=== PATIENT | female | born 1960 | race Caucasian/White ===

== ENCOUNTER 2019-06-16 09:21 | Day surgery (SDC) | payer BC ==
[2019-06-14 08:45] VITALS: BMI 38.9
[~2019-06-16 09:21] MED LIST: DEXAMETHASONE SOD PHOSPHATE 10 MG/ML 1 ML VIAL IV ONE; DEXAMETHASONE SOD PHOSPHATE 4 MG/ML 1 ML VIAL IV ONE; FAMOTIDINE 20 MG/2 ML VIAL IV ONE; LACTATED RINGERS 1,000 ML IV SCH; LIDOCAINE 1% 20 ML VIAL (10MG/ML) FOR IV START INTRADERMA PRN; MIDAZOLAM 2 MG/2 ML VIAL IV PRN; ONDANSETRON 4 MG/2 ML VIAL IVP ONE; SCOPOLAMINE 1.5MG/72HR PATCH TRANSDERM ONE
[2019-06-16] MEDS: OXYMETAZOLINE 0.05% NASL SPRAY 1 SPRAY BOTTLE NASAL ONE ×5 (09:55→10:29)
[2019-06-16 10:12] LABS: Glucose,Whole Blood 157 mg/dL (75-99)
[2019-06-16] MEDS ORDERED: SUCCINYLCHOLINE CHLORIDE 100 MG/5 ML SYR IV ONE (11:21)
[2019-06-16] MEDS ORDERED: MIDAZOLAM 2 MG/2 ML VIAL ONE (11:21)
[2019-06-16] MEDS ORDERED: GLYCOPYRROLATE 0.2 MG/ML 2 ML VIAL ONE (11:21)
[2019-06-16] MEDS ORDERED: fentaNYL (PF) 50 MCG/ML 2 ML AMP ONE (11:21)
[2019-06-16] MEDS ORDERED: LIDOCAINE 1% INJ 10MG/ML (20 ML MDV) ONE (11:21)
[2019-06-16] MEDS ORDERED: PROPOFOL 10 MG/ML 20 ML VIAL IV ONE (11:21)
[2019-06-16] MEDS ORDERED: ePHEDrine SULFATE/0.9% NACL/PF 50 MG/5 ML SYRINGE IV ONE (11:21)
[2019-06-16] MEDS ORDERED: LIDOCAINE 1%-EPI 1:100,000 20 ML VIAL SQ ONE ×2 (11:44)
[2019-06-16] MEDS ORDERED: BACITRACIN 500 UNIT/GM OINT 28.4 GM TUBE TOPICAL ONE (12:28)
--- NOTE | 2019-06-16 12:43 | P.OP ---
Date of Procedure: 06/16/19 Preoperative Diagnosis: Deviated nasal septum Inferior turbinate hypertrophy Chronic sinusitis right-sided Postoperative Diagnosis: Same with left maxillary sinus disease also Procedure(s) Performed: Septoplasty Outfractured and submucous resection of the inferior turbinates Bilateral functional endoscopic sinus surgery including bilateral maxillary antrostomy with removal of tissue from the maxillary sinus, right anterior and posterior ethmoidectomy and right sphenoidotomy including balloon sinus plasty Anesthesia: JARRETT Surgeon: Troy Grajeda Estimated Blood Loss (ml): 10 Pathology: other (Nasal septal bone and cartilage and sinus contents) Condition: stable Disposition: PACU Indications for Procedure: This is a 59-year-old o0 who has had difficulties with nasal airway obstruction and congestion as well as chronic sinusitis on the right side. Computed tomography scan of sinuses showed chronic sinusitis in the right maxillary ethmoid and sphenoid sinus Operative Findings: Nasal septum deviated to the right with inferior turbinate hypertrophy bilaterally. There was white mucous drainage in the right middle meatus and right maxillary sinus with inflammation throughout the ethmoid sinuses and the right sphenoid sinus, while performing the inferior turbinoplasty it was noted that there was purulence coming from the left middle meatus and therefore it was elected left maxillary antrostomy also with minimal purulence but obstruction of the ostium and mild inflammation of the mucosa throughout the maxillary sinus Description of Procedure: The patient was brought into the operative suite and placed in a supine position. The patient underwent induction of general anesthesia with oral endotracheal intubation without difficulty. The patient was prepped and draped in the usual aseptic fashion with the orbits in the operating field for monitoring to the case and the computed tomography scan was on the computer screen for review throughout the case. 1% lidocaine with 1 :100,000 epinephrine was infused submucosally into both sides of the nasal septum as well as the lateral nasal wall and anterior tips of the middle turbinates. While this was taking vasoconstrictive effect the inferior turbinates were infractured with [place] elevator and partial submucous resection of the inferior turbinates was performed with a portion of the submucosal soft tissue and the inferior turbinate bone removed with Coblation device. The inferior turbinates were then outfractured with the [place] elevator. A left hemitransfixion incision was then made with the mucoperichondrial and mucoperiosteal flap on the left elevated. The bony cartilaginous junction was disarticulated and the mucoperiosteal flap on the right was elevated. Bony nasal septal deformities were removed with Ryder forceps and an inferior car tilaginous strip was removed leaving a full 1.5 cm caudal strut. Checking intranasally this corrected the nasoseptal deformities and the hemitransfixion incision was closed with a running 4-0 chromic suture. Full 0 endoscopic examination is performed bilaterally. Beginning on the left, the middle turbinate was medialized. The maxillary ostium was located with a ballpoint probe and an infundibulotomy was performed followed by uncinectomy. The maxillary antrostomy was enlarged at the expense of the anterior and posterior fontanelle taking care anteriorly not to injure the lacrimal bone. The maxillary sinus was evaluated with 30 and 70 endoscope .[Abnormal appearing tissue was removed from the maxillary sinus]. Proceeding on the right the maxillary antrostomy and uncinectomy and in fundibulotomy and removal of tissue from maxillary sinus was completed as it was on the left. There was some purulence and therefore this was cultured also. Right Anterior and posterior ethmoidectomy were then performed from anterior to posterior to the level of the skull base. The roof of the anterior ethmoid air cells were then cleaned from posterior to anterior using up-biting Blakesley forceps. A balloon sinus plasty was then performed of the sphenoid sinus using the entellus light guided system. The sphenoid sinus was then explored with 0 endoscope.[Abnormal tissue was removed from the sphenoid sinus]. Attention was then turned to the right where the procedures were followed as they had been on the left. [Nasopore nasal dressing was placed in the middle meatus bilaterally under direct visualization]. Bilateral Garcia airway splints coated with bacitracin ointment were placed and sutured transseptally with a 4-0 nylon suture. The patient was suctioned in oral gastric fashion and was allowed to emerge from general anesthesia having tolerated procedure well and was extubated in the operating suite and transferred to the postoperative recovery area in satisfactory condition.
[2019-06-16 12:56] VITALS: TEMP 97.1
[2019-06-16] MEDS: HYDROmorphone 0.5 MG/0.5 ML SYRINGE IVP PRN ×2 (13:20→13:40)
[2019-06-16 13:25] LABS: Glucose,Whole Blood 176 mg/dL (75-99)
[2019-06-16] MEDS ORDERED: hydrALAZINE HCL 20 MG/ML 1 ML VIAL IV ONE (13:55)
[2019-06-16] MEDS ORDERED: HYDROcodone/APAP 5-325MG 1 EACH TAB PO ONE (14:43)
[2019-06-16 14:54] VITALS: RESP 18
[2019-06-16 15:40] VITALS: BP 132/77; PULSE 80
== END 2019-06-16 16:10 | disposition home or self-care (01) ==
LOC: OR 09:21
PROVIDERS: ATTEND Otolaryngology
DX: J34.2 Deviated nasal septum (principal); J34.3 Hypertrophy of nasal turbinates; J32.2 Chronic ethmoidal sinusitis; J32.3 Chronic sphenoidal sinusitis; J32.0 Chronic maxillary sinusitis; J01.01 Acute recurrent maxillary sinusitis; E11.9 Type 2 diabetes mellitus without complications; K08.409 Partial loss of teeth, unspecified cause, unspecified class; K21.9 Gastro-esophageal reflux disease without esophagitis; E78.5 Hyperlipidemia, unspecified; I48.91 Unspecified atrial fibrillation; G47.33 Obstructive sleep apnea (adult) (pediatric); Z99.89 Dependence on other enabling machines and devices; Z79.82 Long term (current) use of aspirin; Z79.899 Other long term (current) drug therapy; Z79.1 Long term (current) use of non-steroidal anti-inflammatories (NSAID); Z79.4 Long term (current) use of insulin; Z90.89 Acquired absence of other organs; Z98.890 Other specified postprocedural states; Z98.84 Bariatric surgery status; Z82.49 Family history of ischemic heart disease and other diseases of the circulatory system; Z83.79 Family history of other diseases of the digestive system; Z83.3 Family history of diabetes mellitus; Z91.048 Other nonmedicinal substance allergy status
CPT/HCPCS: 30520; 30140; 31267; 31259; 88305; 88300; 87070; 87205; 87075; 87077; 87186; C1726; J2250; J0360; J1100; J2405; J0690; J2001; J3010; J0330; J2704; J1170

== ENCOUNTER → 2020-03-28 | Outpatient (CLI) | payer BC | END | disposition home or self-care (01) | LOC: CPPFTMAIN 07:25 | PROVIDERS: ATTEND Family Medicine | DX: R05 Cough (principal) | CPT/HCPCS: 94060; 94726; 94729 ==

== ENCOUNTER → 2020-06-22 | Outpatient (CLI) | payer BC ==
--- NOTE | 2020-06-22 15:38 | US ---
EXAMINATION TYPE: US carotid duplex BILAT DATE OF EXAM: 06/22/2020 COMPARISON: NONE CLINICAL HISTORY: R42 Postural dizziness. Patient stated dizziness subsided after increasing daily wa ter intake. EXAM MEASUREMENTS: RIGHT: Peak Systolic Velocity (PSV) cm/sec ----- Right CCA: 92.1 ----- Right ICA: 122.0 prox ----- Right ECA: 65.3 ICA/CCA ratio: 122.0/92.1 = 1.3 RIGHT: End Diastole cm/sec ----- Right CCA: 22.6 ----- Right ICA: 30.3 ----- Right ECA: 0.0 LEFT: Peak Systolic Velocity (PSV) cm/sec ----- Left CCA: 99.8 ----- Left ICA: 83.7 ----- Left ECA: 55.8 ICA/CCA ratio: 83.7/99.8 = 0.8 LEFT: End Diastole cm/sec ----- Left CCA: 20.8 ----- Left ICA: 17.2 ----- Left ECA: 7.1 VERTEBRALS (direction of flow): Right Vertebral: Antegrade Left Vertebral: Antegrade Rhythm: Normal Mild intimal wall changes noted at bilateral carotid bifurcation. IMPRESSION: No hemodynamically significant stenosis bilaterally. Criteria for Assigning % of Stenosis / Diameter reduction (Estimation based on the indirect measurements of the internal carotid artery velocities (ICA PSV). 1. Normal (no stenosis)=ICA PSV < 125 cm/s: ratio < 2.0: ICA EDV<40 cm/s. 2. Less than 50% stenosis=ICA PSV < 125 cm/s: ratio < 2.0: ICA EDV<40 cm/s. 3. 50 to 69% stenosis=ICA PSV of 125 to 230 cm/s: ration 2.0 ? 4.0: ICA EDV 40-100 cm/s. 4. Greater than 70% stenosis to near occlusion= ICA PSV > 230 cm/s: ratio > 4.0: ICA EDV > 100 cm/s. 5. Near occlusion= ICA PSV velocities may be low or undetectable: variable ratio and ICA EDV. 6. Total occlusion=unable to detect flow.
== END | disposition home or self-care (01) ==
LOC: RADUSWWP 09:39
PROVIDERS: ATTEND Family Medicine
DX: R42 Dizziness and giddiness (principal)
CPT/HCPCS: 93880

== ENCOUNTER → 2021-11-23 | Outpatient (CLI) | payer BC ==
--- NOTE | 2021-11-26 10:47 | MM ---
Reason for exam: screening (asymptomatic). Last mammogram was performed 2 years and 8 months ago. History: Patient is postmenopausal. Physical Findings: A clinical breast exam by your physician is recommended on an annual basis and results should be correlated with mammographic findings. MG Screening Mammo w CAD Bilateral CC and MLO view(s) were taken. Prior study comparison: April 01, 2019, mammogram, performed at [facility]. February 03, 2018, mammogram, performed at [facility]. There are scattered fibroglandular densities. There are benign appearing round vascular calcifications bilaterally. There is no discrete abnormality. ASSESSMENT: Benign, BI-RAD 2 RECOMMENDATION: Routine screening mammogram of both breasts in 1 year.
== END | disposition home or self-care (01) ==
LOC: RADMAMWWP 08:20
PROVIDERS: ATTEND Family Medicine
DX: Z12.31 Encounter for screening mammogram for malignant neoplasm of breast (principal); Z78.0 Asymptomatic menopausal state
CPT/HCPCS: 77067

== ENCOUNTER → 2022-12-17 | Outpatient (CLI) | payer BC ==
--- NOTE | 2022-12-18 07:32 | MM ---
Reason for Exam: Screening (asymptomatic). Last screening mammogram was performed 12 month(s) ago. Patient History: Menarche at age 11. First Full-Term at age 26. Postmenopausal. Risk Values: Rubina 5 year model risk: 1.8%. NCI Lifetime model risk: 7.2%. Prior Study Comparison: 02/03/2018 Screening Mammogram, [facility]. 04/01/2019 Screening Mammogram, [facility]. 11/23/2021 Bilateral Screening Mammogram, [facility]. Tissue Density: The breast tissue is almost entirely fat. Findings: Analyzed By CAD. There is no suspicious group of microcalcifications or new suspicious mass in either breast. Overall Assessment: Negative, BI-RAD 1 Management: Screening Mammogram of both breasts in 1 year. A clinical breast exam by your physician is recommended on an annual basis and results should be correlated with mammographic findings. [facility] will attempt to contact patient to return for supplemental views and ultrasound if indicated. Electronically signed and approved by: Kal Ledesma DO
== END | disposition home or self-care (01) ==
LOC: RADMAMWWP 06:55
PROVIDERS: ATTEND Family Medicine
DX: Z12.31 Encounter for screening mammogram for malignant neoplasm of breast (principal); Z78.0 Asymptomatic menopausal state
CPT/HCPCS: 77067

== ENCOUNTER → 2023-01-30 | Outpatient (CLI) | payer BC ==
[2023-01-30 13:03] LABS: Partial Thromboplastin Time 22.3 sec (22.0-30.0); Prothrombin Time 10.4 sec (9.0-12.0)
[2023-01-30 15:56] LABS: ALT 23 U/L (8-44); AST 27 U/L (13-35); Albumin 4.4 d/dL (3.8-4.9); Albumin/Globulin Ratio 1.42 Ratio (1.60-3.17); Alkaline Phosphatase 90 U/L (41-126); BUN/Creat Ratio 22.33 Ratio (12.00-20.00); Blood Urea Nitrogen 20.1 mg/dL (9.0-27.0); Calcium 9.7 mg/dL (8.7-10.3); Carbon Dioxide 24.9 mmol/L (21.6-31.8); Chloride 105 mmol/L (96-109); Globulin 3.1 d/dL (1.6-3.3); Glucose 98 mg/dL (70-110); Potassium 4.5 mmol/L (3.5-5.5); Sodium 141 mmol/L (135-145); Total Bilirubin 0.7 mg/dL (0.3-1.2); Total Protein 7.5 d/dL (6.2-8.2)
[2023-01-30 17:11] LABS: Appearance,Urine Clear (Clear); Bilirubin,Urine Negative (Negative); Blood,Urine Negative (Negative); Color,Urine Yellow (Yellow); Ketones,Urine Negative (Negative); Nitrite,Urine Negative (Negative); Urobilinogen,Urine 0.2
[2023-01-30 20:12] LABS: Basophils # (A) 0.09 X 10*3/uL (0.00-0.10); Basophils % (A) 1.2 %; Eosinophils # (A) 0.25 X 10*3/uL (0.04-0.35); Eosinophils % (A) 3.2 %; HCT 41.6 % (37.2-46.3); HGB 13.2 d/dL (12.0-15.0); Lymphocytes # (A) 2.11 X 10*3/uL (0.90-5.00); MCH 30.3 pg (27.0-32.0); MCHC 31.7 d/dL (32.0-37.0); MCV 95.4 FL (80.0-97.0); Mean Platelet Volume 10.8 FL (9.5-12.2); Monocytes # (A) 0.77 X 10*3/uL (0.20-1.00); Monocytes % (A) 9.8 %; NRBC Per 100 WBC 0 X 10*3/uL (0.00-0.01); Neutrophils # (A) 4.56 X 10*3/uL (1.80-7.70); Neutrophils % (A) 58.3 %; Platelet Count 246 X 10*3/uL (140-440); RBC 4.36 X 10*6/uL (4.10-5.20); RDW 13.7 % (11.5-14.5); WBC 7.82 X 10*3/uL (4.50-10.00)
== END | disposition home or self-care (01) ==
LOC: LABWHC1 11:10
PROVIDERS: ATTEND Orthopaedic Surgery Sports Medicine
DX: Z01.812 Encounter for preprocedural laboratory examination (principal); M17.11 Unilateral primary osteoarthritis, right knee
CPT/HCPCS: 36415; 80053; 81003; 85025; 85610; 85730; 87070

== ENCOUNTER 2023-02-06 07:39 | Day surgery (SDC) | payer BC ==
[2023-02-03 11:48] VITALS: BMI 38.6
[~2023-02-06 07:39] MED LIST changes: +ACETAMINOPHEN TAB 500 MG TAB PO PRN; -DEXAMETHASONE SOD PHOSPHATE 10 MG/ML 1 ML VIAL IV ONE; -FAMOTIDINE 20 MG/2 ML VIAL IV ONE; +GABAPENTIN 300 MG CAP PO PRN; +HYDROmorphone 0.5 MG/0.5 ML SYRINGE IVP PRN; -LACTATED RINGERS 1,000 ML IV SCH; -LIDOCAINE 1% 20 ML VIAL (10MG/ML) FOR IV START INTRADERMA PRN; +MELOXICAM 7.5 MG TAB PO PRN; -MIDAZOLAM 2 MG/2 ML VIAL IV PRN; +ONDANSETRON 4 MG/2 ML VIAL IVP PRN; -SCOPOLAMINE 1.5MG/72HR PATCH TRANSDERM ONE; +TRANEXAMIC 1,000 MG/100ML-NACL 1,000 MG in SALINE 1 100ML.BAG IVPB PRN; +VANCOMYCIN 1,500 MG in SODIUM CHLORIDE 0.9% 500 ML 500 ML IVPB PRN
[2023-02-06] MEDS ORDERED: LACTATED RINGERS 1,000 ML IV ONE (08:00)
[2023-02-06 08:31] LABS: Glucose,Whole Blood 168 mg/dL (70-110)
[2023-02-06] MEDS ORDERED: MIDAZOLAM 2 MG/2 ML VIAL IVP ONE (08:59)
[2023-02-06] MEDS ORDERED: ACETAMINOPHEN TAB 325 MG TAB PO PRN (09:16)
[2023-02-06] MEDS ORDERED: traMADol 50 MG TAB PO PRN (09:16)
[2023-02-06] MEDS ORDERED: HYDROmorphone 0.5 MG/0.5 ML SYRINGE IVP PRN (09:16)
[2023-02-06] MEDS ORDERED: diazePAM 5 MG TAB PO PRN (09:16)
[2023-02-06] MEDS ORDERED: HYDROmorphone 1 MG/ML 1 ML SYRINGE IVP PRN (09:16)
[2023-02-06] MEDS ORDERED: bisacodyL 10 MG SUPP RECTAL PRN (09:16)
[2023-02-06] MEDS ORDERED: ONDANSETRON 4 MG/2 ML VIAL IVP PRN (09:16)
[2023-02-06] MEDS ORDERED: MAGNESIUM HYDROXIDE 2,400 MG/10 ML CUP PO PRN (09:16)
[2023-02-06] MEDS ORDERED: NALOXONE 0.4 MG/ML 1 ML VIAL IV PRN (09:16)
[2023-02-06] MEDS ORDERED: NA PHOS,M-B/NA PHOS,DI-BA 133 ML ENEMA RECTAL PRN (09:16)
[2023-02-06] MEDS ORDERED: HYDROcodone/APAP 7.5-325MG 1 EACH TAB PO PRN (09:23)
[2023-02-06 13:18] LABS: Glucose,Whole Blood 196 mg/dL (70-110)
[2023-02-06] MEDS ORDERED: SODIUM CHLORIDE 0.9% 1,000 ML IV ONE (13:50)
[2023-02-06] MEDS: HYDROmorphone 0.5 MG/0.5 ML SYRINGE IVP PRN ×2 (13:56→17:24)
--- NOTE | 2023-02-06 14:49 | XR ---
EXAMINATION TYPE: XR knee limited RT DATE OF EXAM: 02/06/2023 COMPARISON: NONE TECHNIQUE: Two views submitted HISTORY: Post op FINDINGS: There is a prosthetic knee in near anatomic alignment. There is soft tissue edema and emphysema. IMPRESSION: 1. Postoperative change. Appears in near-anatomic alignment
[2023-02-06] MEDS: LACTATED RINGERS 1,000 ML IV SCH ×3 (15:43→18:36)
[2023-02-06] MEDS: ROPIVACAINE 1,100 MG, SODIUM CHLORIDE 0.9% 500 ML 330 ML, EMPTY PAIN BALL 1 EACH MISCELLANE SCH ×4 (15:44→18:15)
[2023-02-06 17:22] LABS: Glucose,Whole Blood 344 mg/dL (70-110)
[2023-02-06] MEDS ORDERED: ALBUTEROL HFA INHALER INHALATION PRN (17:58)
[2023-02-06] MEDS ORDERED: DEXTROSE 50% SYRINGE 50 ML IVP PRN ×4 (18:00→20:08)
--- NOTE | 2023-02-06 18:06 | P.CONS ---
History of Present Illness - Reason for Consult Consult date: 02/06/23 - History of Present Illness Patient is a 62-year-old female with a past medical history of diabetes mellitus, atrial fibrillation not on anticoagulation, hypertension, asthma, lap band who presents for right TKA. Patient was seen after surgery and currently has no acute complaints. Medicine has been consulted for medical management Review of systems:10 ROS reviewed and are negative except as noted in HPI Physical exam General: [Alert and oriented, well nourished, no acute distress]. Eye: [PERRL, EOMI, normal conjunctiva]. HENT: [Normocephalic, clear tympanic membranes, normal hearing, moist oral mucosa, no scleral icterus, no sinus tenderness]. Neck: [Supple, non-tender, no carotid bruits, no JVD, no lymphadenopathy]. Lungs: [Clear to auscultation and percussion, non-labored respiration]. Heart: [Normal rate, regular rhythm, no murmur, gallop or edema]. Abdomen: [Soft, non-tender, non-distended, normal bowel sounds, no masses]. Musculoskeletal: [Right knee bandages intact and dry, restricted range of motion of the right knee]. Skin: [Skin is warm, dry and pink, no rashes or lesions]. Neurologic: [Awake, alert, and oriented X3, CN II-XII intact]. Psychiatric: [Cooperative, appropriate mood and affect]. Assessment and plan Diabetes mellitus uncontrolled Paroxysmal atrial fibrillation Hypertension Asthma Status post right TKA We'll start patient on Levemir 29 units at bedtime, 10 units aspart with meals and sliding scale insulin. On discharge patient will resume her home insulin regimen which also includes oral diabetic meds. Diabetic diet and Accu-Cheks Resume sotalol. Patient was not on any anticoagulation outpatient. 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 Resume aspirin 81 mg by mouth twice a day for now. Resume lisinopril Resume albuterol inhaler and Singulair for asthma Pain management as per your primary service Thank you for the consult. We'll continue to follow along with you Past Medical History Past Medical History: Atrial Fibrillation, Diabetes Mellitus, GERD/Reflux, Hyperlipidemia, Hypertension, Osteoarthritis (OA), Sleep Apnea/CPAP/BIPAP Additional Past Medical History / Comment(s): sleep apnea (has a cpap but does not use), environmental allergies., has lap band with fluid. History of Any Multi-Drug Resistant Organisms: MRSA Year Discovered:: 06/16/19 MDRO Source:: Right Sinus Past Surgical History: Bariatric Surgery, Section, Tonsillectomy Additional Past Surgical History / Comment(s): D&C. LAP BAND 2011 with fluid (pt states done at [facility]- has not followed up in 10 years. ,pranay cataracts, sinus surgery. Past Anesthesia/Blood Transfusion Reactions: No Reported Reaction Additional Past Anesthesia/Blood Transfusion Reaction / Comm: long time to wake up after lap band surgery., no hx blood transfusion Past Psychological History: Depression Smoking Status: Never smoker Past Alcohol Use History: None Reported Past Drug Use History: None Reported - Past Family History Mother Family Medical History: Cancer Medications and Allergies Home Medications Medication Instructions Recorded Confirmed Type Aspirin 325 mg PO HS 06/09/15 02/06/23 History Atorvastatin [Lipitor] 40 mg PO HS 06/09/15 02/06/23 History Furosemide 20 mg PO DAILY PRN 06/09/15 02/06/23 History Insulin Aspart [NovoLOG] 1 dose SQ TID-W/MEALS 06/09/15 02/06/23 History lisinopriL [Lisinopril] 2.5 mg PO HS 06/09/15 02/06/23 History metFORMIN HCL [Glucophage] 1,000 mg PO BID 06/09/15 02/06/23 History Sotalol [Betapace] 80 mg PO BID 06/14/19 02/06/23 History Albuterol Inhaler [Ventolin Hfa 1 - 2 puff INHALATION Q6H PRN 02/03/23 02/06/23 History Inhaler] Budesonide-Formot 160-4.5 Mcg 2 puff INHALATION BID 02/03/23 02/06/23 History [Symbicort 160-4.5 Mcg Inhaler] Empagliflozin [Jardiance] 10 mg PO DAILY 02/03/23 02/06/23 History Famotidine [Pepcid] 20 mg PO BID 02/03/23 02/06/23 History Ibuprofen [Motrin] 600 mg PO DIRECTED PRN 02/03/23 02/06/23 History Insulin Detemir [Levemir Flexpen] 30 units SQ QAM 02/03/23 02/06/23 History Montelukast [Singulair] 10 mg PO DAILY 02/03/23 02/06/23 History Sertraline [Zoloft] 100 mg PO DAILY 02/03/23 02/06/23 History Ubidecarenone [Co Q-10] 400 mg PO HS 02/03/23 02/06/23 History Allergies Allergy/AdvReac Type Severity Reaction Status Date / Time No Known Allergies Allergy Verified 02/06/23 08:05 Physical Exam Osteopathic Statement: *. No significant issues noted on an osteopathic structural exam other than those noted in the History and Physical/Consult. Vitals: Vital Signs Temp Pulse Pulse Pulse Resp BP BP 02/06/23 17:18 98.0 F 92 18 122/71 02/06/23 16:30 82 121/73 02/06/23 15:30 88 124/66 02/06/23 14:30 74 16 127/71 02/06/23 14:00 77 16 127/64 02/06/23 13:30 70 134/76 02/06/23 13:00 64 16 112/59 02/06/23 12:45 70 112/59 02/06/23 12:30 73 115/64 02/06/23 12:15 73 16 113/63 02/06/23 12:00 69 16 122/63 02/06/23 11:45 73 16 127/68 02/06/23 11:34 97.3 F L 80 12 132/67 02/06/23 09:15 79 17 123/62 02/06/23 08:00 98.9 F 89 16 117/69 Pulse Ox 02/06/23 17:18 97 02/06/23 16:30 02/06/23 15:30 02/06/23 14:30 98 02/06/23 14:00 98 02/06/23 13:30 99 02/06/23 13:00 96 02/06/23 12:45 97 02/06/23 12:30 97 02/06/23 12:15 97 02/06/23 12:00 97 02/06/23 11:45 99 02/06/23 11:34 100 02/06/23 09:15 100 02/06/23 08:00 98 Intake and Output 02/06/23 02/06/23 02/06/23 06:59 14:59 22:59 Intake Total 1000 Output Total 100 Balance 900 Intake: IV 1000 Output: Estimated Blood Loss 100 Other: Weight 97.1 kg 97.1 kg Results Labs: Abnormal Lab Results - Last 24 Hours (Table) 02/06/23 02/06/23 02/06/23 Range/Units 08:30 13:16 17:20 POC Glucose (mg/dL) 168 H 196 H 344 H (70-110) mg/dL
--- NOTE | 2023-02-06 18:22 | OP ---
OPERATIVE REPORT DATE OF SERVICE : 02/06/2023 PREOPERATIVE DIAGNOSIS: Right knee osteoarthrosis. POSTOPERATIVE DIAGNOSIS: Right knee osteoarthrosis. PROCEDURE PERFORMED: Right total knee arthroplasty. ANESTHESIA: Spinal sedation. ESTIMATED BLOOD LOSS: 100 mL. TOURNIQUET TIME: 55 minutes at 250 mmHg. COMPLICATIONS: None apparent. DRAINS: None. DISPOSITION: Postanesthesia care unit. INDICATIONS FOR PROCEDURE: Cyndie is a very pleasant 62-year-old female with longstanding history of right knee pain. Her symptoms and examination are consistent with advanced right knee osteoarthrosis. She has been through significant nonoperative management up to this point. Further treatment options were discussed, and she decided to go forward with the right total knee arthroplasty. The risks of procedure were discussed with her in detail. These risks included but were not limited to risk of infection, nerve damage, bleeding, pain, and a small risk of deep vein thrombosis which could lead to fatal pulmonary embolism. There is also a risk of loosening of the implant which could require revision operation. The patient understands these risks. All of her questions were answered to her satisfaction. An appropriate informed consent was obtained. DESCRIPTION OF PROCEDURE: The patient was identified in the preoperative holding area. Surgical site was marked by both the patient and myself. She was given 2 g of Ancef IV for prophylactic purposes. She was then transported to the operative suite. She was placed supine on the operating room table. A spinal anesthetic was then administered and dosed per the Anesthesia Department without apparent complication. Examination under anesthesia was then performed. The patient was 2 to 3 degrees shy of full extension. She had 100 degrees of flexion. The medial collateral ligament, lateral collateral ligament, and posterior cruciate ligaments were stable. Tourniquet was then placed high on the right upper thigh and well-padded in preparation for surgery. The patient's right lower extremity was then prepped and draped in usual sterile fashion. Standard surgical pause was undertaken to ensure that we were operating the correct site and that appropriate preoperative antibiotics had been given. All staff in the room were in agreement, and we proceeded. The outlines of the patella were marked with a surgical pen. A planned 12 cm vertical incision centered over the patella was marked with a surgical pen. The leg was then exsanguinated with an Esmarch dressing. The knee was then flexed, and the tourniquet was inflated to 250 mmHg. The total tourniquet time for the procedure was 55 minutes. Incision was then made with a 10-blade scalpel. Dissection was carried down sharply overlying the fascia. Great care was taken to minimize the skin flaps. The knee was then exposed using a standard medial parapatellar approach. A small cuff of quadriceps tendon was then left for suturing. She was in a small bit of valgus preoperatively. Medially, dissection was only done as to allow for placement of the retractor. The medial meniscus was then excised as well. The lateral meniscus was also released anteriorly. The leg was then externally rotated. The patella was everted. The knee was flexed. Retractors were then placed to protect the collateral ligaments. I then proceeded to remove the infrapatellar fat pad. This was excised sharply tangentially with fibers of the patellar tendon. I then proceeded to remove the peripheral osteophytes. This was done with a rongeur. I then proceeded with the distal femoral resection. She did have near full extension. A planned 9 mm resection was then done. The femoral canal was then entered in midline of the femur approximately 10 mm anterior to the origin of the posterior cruciate ligament. The bianca was then advanced down to the center of the femur and placed intramedullary. Based on the preoperative radiographs, the angle between the anatomic and mechanical axis of the femur was approximately 4 to 5 degrees. The valgus angle of the distal femoral cutting guide was then set at 4 degrees for the right knee. The distal femoral cutting guide was then advanced over the intramedullary bianca. This was seated firmly against the femur. I then as mentioned planned to take 9 mm off the distal femur. The cutting block was then secured onto the femur with pins. Jig was then removed. The distal femoral cut was made through the slot of the block. The pins were removed. The distal femoral cutting block was removed. The accuracy of the distal femoral cuts was checked with 2 flat bars. I then proceeded with femoral sizing. Posterior referencing sizing guide was held firmly against the resected distal surface of the femur. The posterior condyles were resting on the posterior plane of the guide. The sizing stylus was then placed on the anterior femur. The size was measured as a size 6. I then assessed for femoral rotation. Three degrees of external rotation was placed onto the jig. These holes were then marked. I then confirmed the rotation by 3 separate methods. This was done using epicondylar axis as well as Whitesides line and posterior referencing. It was deemed that the external rotation was proper. I then went forward and placed the femoral cutting block. This was placed over the previously- placed pin holes. The Allen wing was then placed onto the anterior slots to ensure that we would not notch the anterior femur with the anterior femoral cut. I then proceeded with the anterior femoral cut. This was flush with the anterior cortex of the femur. The posterior cuts were then made followed by the anterior chamfer cut, then the posterior chamfer cut. The cutting block was then removed. Throughout the resection, the collateral ligaments were protected with retractors. I then placed a trial size 6 femur. It was slightly wide, but the narrow fit very nicely, and it fit flush with the distal end of the femur. The drill holes were then made. I then proceeded with the tibial cut. I planned for cruciate-retaining knee. The guide was placed and set for varus and valgus and for slope. The height was set for approximately 2 mm resection from the medial tibial plateau, which was the lower side. I was happy with the alignment and the amount of resection. The cutting block was then pinned to the proximal tibia. The alignment bianca was removed. The proximal tibia was resected with a reciprocating saw. Again, this was done with retractors protecting the collateral ligaments as well as the posterior cruciate ligament. I then proceeded to evaluate the flexion and extension gaps. A 10 mm block was then placed. The flexion and extension gaps were equal. I then proceeded with resection of posterior osteophytes. She had very minimal posterior osteophytes. This was done using a curved osteotome. This resected the posterior osteophytes, and posterior capsular stripping was done off the posterior aspect of the femur at this time. The osteophytes were then removed. I then proceeded with resection of the patella. The thickness of the patella was measured using the caliper. The thickness was 22 mm. The thickness of the anticipated patellar dome was taken into account. Resection was then performed and confirmed to be equal in 4 quadrants using a caliper. Approximately 14 mm of bone remained after resection. A 29 x 8 standard patellar trial was then placed. The holes were drilled, and the trial was then placed. I then proceeded with sizing the tibial plate. A size C plate fit very nicely. I then placed the trial femur, the tibial tray, and the patellar button. A 10 mm trial tibial insert was also placed. The components fit very nicely. She had full extension and flexion. The extension and flexion gaps were equal and stable with varus and valgus stress. The patella tracked appropriately. The tibial tray rotation was then marked with a Bovie. This was externally rotated properly. I then proceeded with tibial preparation. I first drilled the femoral holes and removed the femoral component. The tibial tray was then set for proper external rotation as well as medial and lateral placement onto the tibia. It was then pinned into place. I then proceeded with punching the keel. I then decided to proceed with cementing of all our components. The knee was thoroughly irrigated with sterile saline solution via pulsed lavage. The lateral genicular artery was identified and cauterized. All blood was removed from the bone of the tibia, femur, and patella with pulsed lavage. I then proceeded with cementing. Two packs of antibiotic bone cement prepared on the back table by the surgical product sales consultant. I then proceeded with cementing the tibia first. The cement was impacted into the keel as well as deeply seated into the bone. A second coat of cement was then placed. The tibia was then impacted into place. The excess cement was removed with Success's and Joker's. I then proceeded with cementing of the femoral component. The femoral component was also cemented using standard technique. Excess cement was removed. A 10 mm trial insert was then placed into the knee. It was brought into full extension with a constant axial load placed until the cement had hardened. The patellar component was then cemented. This was held firmly with a compressive device until the cement had dried. When the cement had dried, the knee was taken out of extension. All excess cement was removed from around the prosthesis. I then trialed the knee with a 10 mm insert. Flexion and extension gaps were appropriate. The knee was stable. It came into full extension. I decided to go forward with a 10 mm Medial Congruent cross-linked cruciate- retaining tibial insert. Polyethylene was then placed onto the tibial tray and locked into place. The knee was then reduced. The knee was again further irrigated with sterile saline solution with antibiotic added. The tourniquet was then deflated. Total tourniquet time for the procedure was 55 minutes at 250 mmHg. Final components were Scooby Persona size 6 narrow cruciate-retaining femoral component, size C tibial tray, a 10 mm Medial Congruent cruciate-retaining polyethylene insert, and a 29 x 8 mm patella. I then proceeded with closure. Again, the knee was thoroughly irrigated. The quadriceps tendon and the medial retinaculum were reapproximated with #2 Ethibond suture. The extensor mechanism was then closed with a running #2 Quill suture. Subcutaneous tissues were then closed with 2-0 Vicryl interrupted suture. The skin was closed with a running 3-0 Quill suture. Dermabond was applied to the incision. Sterile compressive dressing was then applied. All sponge and needle counts were deemed correct prior to closure. The patient tolerated the procedure without apparent complication. She was transferred to the recovery room in stable condition. MMODL / IJN: [id number] /
[2023-02-06 19:54] LABS: Glucose,Whole Blood 495 mg/dL (70-110)
[2023-02-06] MEDS: SYMBICORT 160-4.5 MCG INHALER INHALATION SCH (20:00)
[2023-02-06] MEDS: FAMOTIDINE 20 MG TAB PO SCH (20:27)
[2023-02-06] MEDS: SOTALOL 80 MG TAB PO SCH (20:27)
[2023-02-06] MEDS: ASPIRIN 81 MG PO SCH (20:27)
[2023-02-06] MEDS: INSULIN ASPART (NovoLOG) 100 UNIT/ML VIAL SQ SCH (20:28)
--- NOTE | 2023-02-06 20:39 | P.ANPRN ---
Procedure Note - Anesthesia - Nerve Block Performed Right Adductor Canal Infusion Time Out Performed: Yes Date of Procedure: 02/06/23 Procedure Start Time: 08:58 Procedure Stop Time: 09:09 Location of Patient: PreOp Indication: Acute Post-Operative Pain, Requested by Surgeon Sedation Type: Sedate with meaningful contact maintained Preparation: Sterile Prep, Sterile Dressing Position: Supine Catheter: Indwelling Needle Types: Pajunk Needle Gauge: 21 Ultrasound used to visualize needle placement: Yes Ultrasound used to observe medication spread: Yes Blood Aspirated: No Pain Paresthesia on Injection Noted: No Resistance on Injection: Normal Image Stored and Saved: Yes Events: Uneventful and Well Tolerated (Ropivacaine 0.5% 20 mL plus dexamethasone 4 mg)
--- NOTE | 2023-02-06 20:40 | P.ANPRN ---
Procedure Note - Anesthesia - Nerve Block Performed Right iPack Single Time Out Performed: Yes Date of Procedure: 02/06/23 Procedure Start Time: :10 Procedure Stop Time: :13 Location of Patient: PreOp Indication: Acute Post-Operative Pain, Requested by Surgeon Sedation Type: Sedate with meaningful contact maintained Preparation: Sterile Prep Position: Supine Needle Types: Pajunk Needle Gauge: 21 Ultrasound used to visualize needle placement: Yes Ultrasound used to observe medication spread: Yes Blood Aspirated: No Pain Paresthesia on Injection Noted: No Resistance on Injection: Normal Image Stored and Saved: Yes Events: Uneventful and Well Tolerated (Ropivacaine 0.5% 20 mL plus dexamethasone 4 mg)
[2023-02-06] MEDS ORDERED: ATORVASTATIN 40 MG TAB PO SCH (21:00)
[2023-02-06] MEDS ORDERED: SENNOSIDES-DOCUSATE SODIUM 1 EACH TAB PO SCH (21:00)
[2023-02-06] MEDS ORDERED: INSULIN DETEMIR (LEVEMIR) 100 UNIT/ML SYR SQ SCH (21:00)
[2023-02-07] MEDS: HYDROcodone/APAP 7.5-325MG 1 EACH TAB PO PRN ×3 (01:57→13:51)
[2023-02-07 05:19] LABS: Basophils % (A) 0 %; Eosinophils % (A) 0 %; HCT 33.5 % (34.0-46.0); HGB 11.2 gm/dL (11.4-16.0); Lymphocytes # (A) 0.8 k/uL (1.0-4.8); Lymphocytes % (A) 10 %; MCH 30.8 pg (25.0-35.0); MCHC 33.3 g/dL (31.0-37.0); MCV 92.5 fL (80.0-100.0); Mean Platelet Volume 8.1; Monocytes # (A) 0.5 k/uL (0-1.0); Monocytes % (A) 6 %; Neutrophils # (A) 6.9 k/uL (1.3-7.7); Neutrophils % (A) 83 %; Platelet Count 166 k/uL (150-450); RBC 3.62 m/uL (3.80-5.40); RDW 13.5 % (11.5-15.5); WBC 8.4 k/uL (3.8-10.6)
[2023-02-07 06:03] LABS: Glucose,Whole Blood 248 mg/dL (70-110)
[2023-02-07] MEDS: INSULIN ASPART (NovoLOG) 100 UNIT/ML VIAL SQ SCH ×4 (06:12→12:41)
[2023-02-07] MEDS ORDERED: INSULIN ASPART (NovoLOG) 100 UNIT/ML VIAL SQ SCH (07:30)
[2023-02-07] MEDS: ROPIVACAINE 1,100 MG, SODIUM CHLORIDE 0.9% 500 ML 330 ML, EMPTY PAIN BALL 1 EACH MISCELLANE SCH ×10 (07:39→13:48)
[2023-02-07] MEDS: LACTATED RINGERS 1,000 ML IV SCH ×2 (07:41→07:42)
[2023-02-07 08:07] VITALS: BP 101/60; PULSE 79; RESP 19; TEMP 98.3
[2023-02-07] MEDS: FAMOTIDINE 20 MG TAB PO SCH (08:15)
[2023-02-07] MEDS: SOTALOL 80 MG TAB PO SCH (08:16)
[2023-02-07] MEDS: ASPIRIN 81 MG PO SCH (08:16)
[2023-02-07] MEDS ORDERED: SERTRALINE 100 MG TAB PO SCH (09:00)
[2023-02-07] MEDS ORDERED: MONTELUKAST 10 MG TAB PO SCH (09:00)
[2023-02-07] MEDS: SYMBICORT 160-4.5 MCG INHALER INHALATION SCH (09:12)
--- NOTE | 2023-02-07 10:19 | P.PN ---
Subjective Progress Note Date: 02/07/23 Hospital course Patient is a 62-year-old female with a past medical history of diabetes mellitu s, atrial fibrillation not on anticoagulation, hypertension, asthma, lap band who presents for right TKA. Patient was seen after surgery and currently has no acute complaints. Medicine has been consulted for medical management Subjective This morning patient stated that she is doing well. She is denying any pain. She says that her main issues that her diabetes is not controlled. Patient bloo d sugar this morning is in the 200s. Patient states that she has had diabetes for many years and has it under control at home. She stated that she knows how to manage her diabetes. She believes her last hemoglobin A1c was 6.2. I sent to the patient that her blood glucose is likely elevated in the hospital due to steroid injection given in the OR and also due to stress from surgery. Review of systems:10 ROS reviewed and are negative except as noted in HPI Physical exam General: [Alert and oriented, well nourished, no acute distress]. Eye: [PERRL, EOMI, normal conjunctiva]. HENT: [Normocephalic, clear tympanic membranes, normal hearing, moist oral mucosa, no scleral icterus, no sinus tenderness]. Neck: [Supple, non-tender, no carotid bruits, no JVD, no lymphadenopathy]. Lungs: [Clear to auscultation and percussion, non-labored respiration]. Heart: [Normal rate, regular rhythm, no murmur, gallop or edema]. Abdomen: [Soft, non-tender, non-distended, normal bowel sounds, no masses]. Musculoskeletal: [Right knee bandages intact and dry, restricted range of motion of the right knee]. Skin: [Skin is warm, dry and pink, no rashes or lesions]. Neurologic: [Awake, alert, and oriented X3, CN II-XII intact]. Psychiatric: [Cooperative, appropriate mood and affect]. Assessment and plan Diabetes mellitus uncontrolled secondary to steroids and stress from surgery Acute blood loss anemia as expected from surgery Paroxysmal atrial fibrillation Hypertension Asthma Status post right TKA Resume Levemir 29 units at bedtime, 10 units aspart with meals and sliding scale insulin. On discharge patient will resume her home insulin regimen which also includes oral diabetic meds. Diabetic diet and Accu-Cheks. Patient's blood glucose better controlled this morning Resume sotalol. Patient was not on any anticoagulation outpatient. Per patient and family patient will follow-up with her watch repair technician in 2 weeks to decide the need to start anticoagulation. Resume aspirin 81 mg by mouth twice a day for now. Resume lisinopril Resume albuterol inhaler and Singulair for asthma Pain management as per your primary service Patient stable for discharge from medical standpoint. Her medication reconciliation has been completed. Will defer aspirin dosage and pain regimen to the primary team on discharge Thank you for the consult. We'll continue to follow along with you Objective - Vital Signs Vital signs: Vital Signs Temp 98.3 F 02/07/23 06:59 Pulse 79 02/07/23 06:59 Resp 19 02/07/23 06:59 BP 101/60 02/07/23 06:59 Pulse Ox 97 02/07/23 06:59 FiO2 Intake & Output 02/06/23 02/07/23 02/07/23 18:59 06:59 18:59 Intake Total 1000 Output Total 100 Balance 900 Weight 97.1 kg Intake: IV 1000 Output: Estimated Blood Loss 100 Other: Voiding Method Toilet # Voids 2 4 - Labs CBC & Chem 7: 02/07/23 04:38 Labs: Abnormal Lab Results - Last 24 Hours (Table) 02/06/23 02/06/23 02/06/23 Range/Units 13:16 17:20 19:51 RBC (3.80-5.40) m/uL Hgb (11.4-16.0) gm/dL Hct (34.0-46.0) % Lymphocytes # (1.0-4.8) k/uL POC Glucose (mg/dL) 196 H 344 H 495 H (70-110) mg/dL Hemoglobin A1c (<=6.0) % 02/07/23 02/07/23 02/07/23 Range/Units 04:38 04:38 05:57 RBC 3.62 L (3.80-5.40) m/uL Hgb 11.2 L (11.4-16.0) gm/dL Hct 33.5 L (34.0-46.0) % Lymphocytes # 0.8 L (1.0-4.8) k/uL POC Glucose (mg/dL) 248 H (70-110) mg/dL Hemoglobin A1c 6.4 H (<=6.0) %
[2023-02-07 11:18] LABS: Glucose,Whole Blood 257 mg/dL (70-110)
--- NOTE | 2023-02-07 11:58 | P.PN ---
Progress Note - Text 02/07/23 621am 62-year-old female status post total knee replacement. Patient has an On-Q pump for postop pain control with the solution running at 8 mL an hour. Patient has a VAS of 1 at rest doing well plan to continue On-Q pump infusion
[2023-02-07] MEDS ORDERED: MULTIVITAMINS, THERA 1 EACH TAB PO SCH (12:00)
--- NOTE | 2023-02-07 14:59 | P.DS ---
Providers Expected date of discharge: 02/07/23 Attending physician: Fabio Lucero Consults: 02/06/23 09:16 Consult Physician Routine Consulting Provider: Karla Douglass Consult Reason/Comments: post op medical management Do you want consulting provider notified?: Yes Primary care physician: Shahid Roman - Discharge Diagnosis(es) (1) Status post total right knee replacement Patient was admitted to the OR on 02/06/23 to undergo a right total knee arthroplasty. She had failed conservative measures as an outpatient and desired to proceed with elective surgery after given informed consent. She underwent the above procedure which she tolerated well without complication. Postoperative hospital course has remained without complication. On day of discharge she is afebrile, vital signs stable, labs within acceptable ranges, tolerating by mouth meds and diet, voiding without difficulty, positive flatus, denies abdominal pain or calf pain, pain is controlled on oral pain medication and has no new complaints. Wound is benign, neurovascular status is intact, calf is soft and nontender, abdomen soft and nontender. Review of systems is negative for numbness, tingling, fever, chills, chest pain, shortness of breath, nausea, vomiting, dizziness, headaches, slurred speech or other. Status: Acute Priority: Medium Procedures: Right TKA Patient Condition at Discharge: Good Plan - Discharge Summary Discharge Rx Participant: No New Discharge Prescriptions: New Aspirin [Adult Low Dose Aspirin EC] 81 mg PO BID #60 tab HYDROcodone/APAP 7.5-325MG [[place] 7.5-325] 1 - 2 tab PO Q6HR PRN #42 tab PRN Reason: Pain Docusate [Colace] 100 mg PO BID #60 capsule Continue Insulin Aspart [NovoLOG] 1 dose SQ TID-W/MEALS lisinopriL [Lisinopril] 2.5 mg PO HS metFORMIN HCL [Glucophage] 1,000 mg PO BID Atorvastatin [Lipitor] 40 mg PO HS Furosemide 20 mg PO DAILY PRN PRN Reason: EDEMA Sotalol [Betapace] 80 mg PO BID Budesonide-Formot 160-4.5 Mcg [Symbicort 160-4.5 Mcg Inhaler] 2 puff INHALATION BID Montelukast [Singulair] 10 mg PO DAILY Ubidecarenone [Co Q-10] 400 mg PO HS Insulin Detemir [Levemir Flexpen] 30 units SQ QAM Sertraline [Zoloft] 100 mg PO DAILY Ibuprofen [Motrin] 600 mg PO DIRECTED PRN PRN Reason: Pain Albuterol Inhaler [Ventolin Hfa Inhaler] 1 - 2 puff INHALATION Q6H PRN PRN Reason: Shortness Of Breath Famotidine [Pepcid] 20 mg PO BID Empagliflozin [Jardiance] 10 mg PO DAILY No Action Aspirin 325 mg PO HS Discharge Medication List Aspirin 325 mg PO HS 06/09/15 [History] Atorvastatin [Lipitor] 40 mg PO HS 06/09/15 [History] Furosemide 20 mg PO DAILY PRN 06/09/15 [History] Insulin Aspart [NovoLOG] 1 dose SQ TID-W/MEALS 06/09/15 [History] lisinopriL [Lisinopril] 2.5 mg PO HS 06/09/15 [History] metFORMIN HCL [Glucophage] 1,000 mg PO BID 06/09/15 [History] Sotalol [Betapace] 80 mg PO BID 06/14/19 [History] Albuterol Inhaler [Ventolin Hfa Inhaler] 1 - 2 puff INHALATION Q6H PRN 02/03/23 [History] Budesonide-Formot 160-4.5 Mcg [Symbicort 160-4.5 Mcg Inhaler] 2 puff INHALATION BID 02/03/23 [History] Empagliflozin [Jardiance] 10 mg PO DAILY 02/03/23 [History] Famotidine [Pepcid] 20 mg PO BID 02/03/23 [History] Ibuprofen [Motrin] 600 mg PO DIRECTED PRN 02/03/23 [History] Insulin Detemir [Levemir Flexpen] 30 units SQ QAM 02/03/23 [History] Montelukast [Singulair] 10 mg PO DAILY 02/03/23 [History] Sertraline [Zoloft] 100 mg PO DAILY 02/03/23 [History] Ubidecarenone [Co Q-10] 400 mg PO HS 02/03/23 [History] Aspirin [Adult Low Dose Aspirin EC] 81 mg PO BID #60 tab 02/07/23 [Rx] Docusate [Colace] 100 mg PO BID #60 capsule 02/07/23 [Rx] HYDROcodone/APAP 7.5-325MG [[place] 7.5-325] 1 - 2 tab PO Q6HR PRN #42 tab 02/07/23 [Rx] Follow up Appointment(s)/Referral(s): [facility] [[facility]] - 1-2 Days ([facility] will call you to schedule your in home physical therapy visits. ) Fabio Lucero MD [STAFF PHYSICIAN] - 02/18/23 9:30 am Patient Instructions/Handouts: Knee Replacement (DC) Discharge Disposition: HOME WITH HOME HEALTH SERVICES
== END 2023-02-07 14:31 | disposition home health service (06) ==
LOC: OR 07:39 → 4SSUR 11:34 → OR 02-07 14:31
PROVIDERS: ATTEND Orthopaedic Surgery Sports Medicine
DX: M17.11 Unilateral primary osteoarthritis, right knee (principal); M25.761 Osteophyte, right knee; G89.18 Other acute postprocedural pain; F32.A Depression, unspecified; I48.91 Unspecified atrial fibrillation; E78.5 Hyperlipidemia, unspecified; E11.9 Type 2 diabetes mellitus without complications; K21.9 Gastro-esophageal reflux disease without esophagitis; Z83.3 Family history of diabetes mellitus; Z90.89 Acquired absence of other organs; Z98.891 History of uterine scar from previous surgery; Z79.899 Other long term (current) drug therapy
CPT/HCPCS: 94640 ×2; 97162; 85025; 83036; 73560; 27447; 64448; 64999; J2250; J3370; J1100; J0690 ×2; J2405; J1170

== ENCOUNTER → 2023-05-05 | Outpatient (CLI) | payer BC ==
--- NOTE | 2023-05-05 15:04 | US ---
EXAMINATION TYPE: US venous doppler duplex LE LT DATE OF EXAM: 05/05/2023 2:38 PM COMPARISON: NONE CLINICAL INDICATION: Female, 62 years old with history of R60.0 LOCALIZED EDEMA; lump left leg SIDE PERFORMED: Left TECHNIQUE: The lower extremity deep venous system is examined utilizing real time linear array sonog brady with graded compression, doppler sonography and color-flow sonography. VESSELS IMAGED: Common Femoral Vein Deep Femoral Vein Greater Saphenous Vein * Femoral Vein Popliteal Vein Small Saphenous Vein * Proximal Calf Veins (* superficial vessels) Left Leg: Positive for DVT Common Femoral Vein to Popliteal Vein. IMPRESSION: Grayscale, color doppler, spectral doppler imaging performed of the deep veins of the lo wer extremities. There is normal flow, compressibility, vascular waveforms.
== END | disposition home or self-care (01) ==
LOC: RADUSWWP 14:15
PROVIDERS: ATTEND Family Medicine
DX: R60.0 Localized edema (principal)

== ENCOUNTER → 2023-12-19 | Outpatient (CLI) | payer MEDICARE, BC ==
--- NOTE | 2023-12-22 13:34 | MM ---
Reason for Exam: Screening (asymptomatic). Last screening mammogram was performed 12 month(s) ago. Patient History: Menarche at age 11. First Full-Term at age 26. Postmenopausal. Risk Values: Rubina 5 year model risk: 1.8%. NCI Lifetime model risk: 6.9%. Prior Study Comparison: 04/01/2019 Screening Mammogram, [facility]. 11/23/2021 Bilateral Screening Mammogram, [facility]. 12/17/2022 Bilateral MG screening mammo w CAD, [facility]. Tissue Density: The breasts are almost entirely fatty. Findings: Analyzed By CAD. Right breast: There is no suspicious group of microcalcifications or new suspicious mass. Benign-appearing calcifications right breast. Left breast: There is no suspicious group of microcalcifications or new suspicious mass. Benign-appearing calcifications left breast. Overall Assessment: Benign, BI-RAD 2 Management: Screening Mammogram of both breasts in [address] [facility] will attempt to contact patient to return for supplemental views and ultrasound if indicated. Patient should continue monthly self-breast exams. A clinical breast exam by your physician is recommended on an annual basis. This exam should not preclude additional follow-up of suspicious palpable abnormalities. Note on Rubina scores and lifetime risk: 1. A Rubina score greater than 3% is considered moderate risk. If this is the case, consider specialist referral to assess eligibility for a risk reducing agent. 2. If overall lifetime risk for the development of breast cancer is 20% or higher, the patient may qualify for future screening with alternating mammogram and breast MRI. Electronically signed and approved by: Kal Ledesma DO
== END | disposition home or self-care (01) ==
LOC: RADMAMWWP 06:46
PROVIDERS: ATTEND Family Medicine
DX: Z12.31 Encounter for screening mammogram for malignant neoplasm of breast (principal); Z78.0 Asymptomatic menopausal state
CPT/HCPCS: 77067